=== PATIENT | female | born 1970 | race Caucasian/White ===

== ENCOUNTER 2016-10-17 17:52 | Emergency (ER) | payer OTHER ==
[~2016-10-17] VITALS: Ht 162.6 cm; Wt 87.1 kg
[2016-10-17 20:37] VITALS: BP 82/49
[2016-10-21] MEDS ORDERED: EFFEXOR XR150 MG PO (11:30)
[2016-10-21] MEDS ORDERED: DAILY MULTIPLE1 EACH PO (11:31)
[2016-10-21] MEDS ORDERED: CYANOCOBALAM1000 MCG PO (11:31)
== END 2016-10-17 20:39 | disposition home or self-care (01) ==
LOC: EME → EDBD 17:52 → EME 20:39
DX: T63.461A Toxic effect of venom of wasps, accidental (unintentional), initial encounter (principal); F17.200 Nicotine dependence, unspecified, uncomplicated
CPT/HCPCS: 99281; 99285; J1200

== ENCOUNTER 2016-10-23 10:46 | Day surgery (SDC) | payer OTHER ==
[~2016-10-23] VITALS: Ht 162.6 cm; Wt 87.1 kg
[~2016-10-23 10:46] MED LIST: CYANOCOBALAM1000 MCG PO; DAILY MULTIPLE1 EACH PO; EFFEXOR XR150 MG PO
[2016-10-23 11:01] VITALS: BP 113/69
[2016-10-23 14:38] VITALS: BP 93/60
[2016-10-23 15:18] VITALS: BP 102/60
== END 2016-10-23 15:33 | disposition home or self-care (01) ==
LOC: SDC 10:46
PROC: 0UDB8ZX Extraction of Endometrium, Via Natural or Artificial Opening Endoscopic, Diagnostic (ICD-10-PCS; principal; 2016-10-23)
DX: N85.8 Other specified noninflammatory disorders of uterus (principal); N93.8 Other specified abnormal uterine and vaginal bleeding; R93.8 Abnormal findings on diagnostic imaging of other specified body structures; N85.4 Malposition of uterus; F41.8 Other specified anxiety disorders; E66.9 Obesity, unspecified; Z68.32 Body mass index [BMI] 32.0-32.9, adult; Z87.891 Personal history of nicotine dependence
CPT/HCPCS: 88305; J1100; J2405; J3010